=== PATIENT | female | born 1945 | race Hispanic/Latino ===

== ENCOUNTER 2017-01-15 14:45 | Inpatient (IN) | payer MEDICARE ==
[2017-01-15 15:38] VITALS: BMI 30.5
[2017-01-15] MEDS ORDERED: Alum-Mag Hydrox-Simethicone Susp (30 mL) PO PRN (16:15)
[2017-01-15] MEDS ORDERED: Bismuth Subsalicylate 262 mg/15 ml Sus (240 ml) PO PRN (16:16)
--- NOTE | 2017-01-15 17:13 | CP.PCM.HP ---
History of Present Illness - History of Present Illness History of Present Illness: 71 yo female with history of HTN admitted to [facility] because of worsening depression Present on Admission - Present on Admission Any Indicators Present on Admission: No History of DVT/PE: No History of Uncontrolled Diabetes: No Urinary Catheter: No Decubitus Ulcer Present: No Review of Systems - Review of Systems All systems: reviewed and no additional remarkable complaints except (aside from thsoe mentioned above, 12 point system review were negative by me) Meds Allergies/Adverse Reactions: Allergies Allergy/AdvReac Type Severity Reaction Status Date / Time No Known Allergies Allergy Verified 01/15/17 15:38 Physical Exam - Constitutional Appears: No Acute Distress - Head Exam Head Exam: ATRAUMATIC - Eye Exam Eye Exam: absent: Scleral icterus - ENT Exam ENT Exam: Mucous Membranes Moist - Neck Exam Neck exam: Negative for: Meningismus - Respiratory Exam Respiratory Exam: absent: Rhonchi, Wheezes, Respiratory Distress - Cardiovascular Exam Cardiovascular Exam: REGULAR RHYTHM, +S1, +S2 - GI/Abdominal Exam GI & Abdominal Exam: Soft. absent: Tenderness - Rectal Exam Rectal Exam: Deferred - Neurological Exam Neurological exam: Alert, Oriented x3 - Psychiatric Exam Psychiatric exam: Normal Affect - Skin Skin Exam: Dry, Intact Results - Vital Signs Recent Vital Signs: Last Vital Signs Temp Pulse Resp 18 01/15/17 15:29 BP Pulse Ox Assessment & Plan (1) Depression Status: Acute Comment: psyche is managing (2) UTI (urinary tract infection) Status: Acute Comment: repeat urinalysis and urine culture (3) HTN (hypertension) with goal to be determined Status: Acute Comment: BP stable. continue Metoprolol
[2017-01-15 19:54] LABS: RBC URINE 3 /hpf (0-3); URINE BACTERIA RARE (<OCC); URINE BILIRUBIN NEGATIVE (NEGATIVE); URINE BLOOD NEGATIVE (NEGATIVE); URINE COLOR YELLOW (YELLOW); URINE GLUCOSE (UA) NEG (Normal); URINE KETONE NEGATIVE (NEGATIVE); URINE LEUKOCYTE ESTERASE SMALL Leu/uL (Negative); URINE PROTEIN NEGATIVE (NEGATIVE); URINE UROBILINOGEN 0.2-1.0 mg/dL (0.2-1.0); WBC URINE 40 /hpf (0-5)
[2017-01-16 07:38] LABS: BASO % 0.6 % (0.0-2.0); EOS # 0.5 K/uL (0.0-0.7); EOS % 7.4 % (0.0-4.0); HEMATOCRIT 39.8 % (34.0-47.0); LYMPH # 1.4 K/uL (1.0-4.3); LYMPH % 22.3 % (20.0-40.0); MEAN CELL VOLUME 96.2 fl (81.0-99.0); MEAN CORPUSCULAR HGB CONC 33.2 g/dL (33.0-37.0); MEAN PLATELET VOLUME 6.7 fl (7.2-11.7); MONO # 0.5 K/uL (0.0-0.8); MONO % 7.7 % (0.0-10.0); RED CELL DISTRIBUTION WIDTH 14.4 % (11.5-14.5); WHITE BLOOD COUNT 6.5 K/uL (4.8-10.8)
[2017-01-16 07:52] LABS: IRON 68 ug/dL (37-170)
[2017-01-16 07:52] LABS: CHOLESTEROL 187 mg/dL (0-199)
[2017-01-16 08:00] LABS: ALB/GLOB RATIO 1.3 (1.0-2.1); ALKALINE PHOSPHATASE 72 U/L (38-126); ALT/SGPT 34 U/L (9-52); AST/SGOT 34 U/L (14-36); BILIRUBIN,TOTAL 0.4 mg/dl (0.2-1.3); BLOOD UREA NITROGEN 13 mg/dl (7-17); CALCIUM 8.8 mg/dL (8.4-10.2); CARBON DIOXIDE 27 mmol/L (22-30); CHLORIDE 107 mmol/L (98-107); GFR AFRICAN-AMERICAN > 60; GLUCOSE,RANDOM 97 mg/dL (65-105); POTASSIUM 3.7 MMOL/L (3.6-5.0); SODIUM 146 mmol/l (132-148); TOTAL PROTEIN 6.1 G/DL (6.3-8.2)
--- NOTE | 2017-01-16 08:20 | PCM.PSYCH ---
Initial Psychiatric Evaluation - Initial Psychiatric Evaluation Type of Admission: Voluntary Legal Status: Capacity Chief Complaint (in patient's own words): "I'm depressed." Patient's Reaction to Hospitalization: HPI: 71 yo female with h/o multiple psychiatric admission for depression, transferred from [facility] for admission after she attempted suicide by overdose on Xanax, Alcohol and Gabapentin on 01/12/17. Initial report from [facility] is that patient reported that she overdosed because her is annoying and when she woke up she stated "damn I can't believe I'm still alive." Patient is now stating that her overdose was impulsive and related to her alcohol use. She denies ideation to harm herself or others. She states that she wants to live because she wants to visit her grandchildren on February 05 in [place] and is exited about her first class flight. She denies any self-injurious ideation/plan/intent. No psychotic symptoms. She reports that she has been on many antidepressants in the past which have not been helpful, but believes that Abilify is helpful and is agreeable to increasing the medication. R/B/se reviewed. She reports that her depression is related to her not having friends where she lives or enough activities to engage in. PPHx: Multiple psychiatric admissions, most recent at [facility] 12/09/16-12/16-, -03/18/16, 05/26/15-06/05/15, 10/03/13-10/06/13, 11/06-12/07. History of tx with Wellbutrin XL, Effexor XR and Neurontin. H/o suicide attempt 5-6 year ago, she overdosed on Xanax and alcohol. PMHx: HTN, lap band surgery 6 years ago, diverticulosis, hx gall stones SHx: Lives with , +2 adult children and +4 grandchildren. +Alcohol abuse , been drinking since age 22, longest period of sobriety- 1 year, but she reports that she drinks "sporadically" but when she does it is in large quantities, like an entire bottle of wine or [place]. Denies history of abuse. All: NKDA FHx: Denies family history of mental illness Current Medications: Active Medications Generic Name Dose Route Start Last Admin Trade Name Freq PRN Reason Stop Dose Admin Acetaminophen 650 mg 01/15/17 16:14 01/15/17 19:29 Tylenol 325mg Tab PO 650 mg Q4 PRN Administration Pain, moderate (4-7) Al Hydrox/Mg Hydrox/Simethicone 30 ml 01/15/17 16:15 Maalox Plus 30 Ml PO Q4 PRN Indigestion / Heartburn Amlodipine Besylate 5 mg 01/16/17 09:00 Norvasc PO DAILY PEDRO Aripiprazole 5 mg 01/16/17 22:00 Abilify PO HS PEDRO Bismuth Subsalicylate 524 mg 01/15/17 16:16 Pepto-Bismol PO Q1 PRN Diarrhea Docusate Sodium 100 mg 01/16/17 09:00 Colace PO DAILY PEDRO Lorazepam 0.5 mg 01/15/17 16:04 01/15/17 18:14 Ativan PO 0.5 mg TID PRN Administration Agitation Metoprolol Succinate 50 mg 01/16/17 09:00 Toprol Xl PO DAILY PEDRO Trazodone HCl 50 mg 01/15/17 22:00 01/15/17 21:04 Desyrel PO 50 mg HS PEDRO Administration Trimethoprim/Sulfamethoxazole 800 tab 01/16/17 09:00 Bactrim Ds Tab PO BID PEDRO Past Psychiatric History - Past Psychiatric History Previous Treatment History: Inpatient Pertinent Medical Hx (Current Medical&Sleep Prob, Allergies): Allergies Allergy/AdvReac Type Severity Reaction Status Date / Time No Known Allergies Allergy Verified 01/15/17 15:38 ALPRAZolam [Xanax] 1 mg PO BID PRN 01/15/17 ARIPiprazole [Abilify] 2 mg PO 01/15/17 Docusate [Colace] 100 mg PO DAILY 01/15/17 Enoxaparin [Lovenox] 40 mg SQ DAILY 01/15/17 Metoprolol Tartrate [Lopressor] 50 mg PO DAILY 01/15/17 Sulfamethoxazole/Trimethoprim [Bactrim DS 800 mg-160 mg] 800 tab PO BID amLODIPine [Norvasc] 5 mg PO DAILY 01/15/17 traZODone [Desyrel] 50 mg 01/15/17 Review of Systems - Review of Systems All systems: reviewed and no additional remarkable complaints except - Psychiatric Psychiatric: Depression, Mood Swings Mental Status Examination - Personal Presentation Personal Presentation: Looks stated age - Affect Affect: Broad - Motor Activity Motor Activity: Calm - Reliability in Providing Information Reliability in Providing Information: Good - Speech Speech: Organized - Mood Mood: Depressed - Formal Thought Process Formal Thought Process: No Impairment - Obsessions/Compulsions Obsessions: No Compulsions: No - Cognitive Functions Orientation: Person, Place, Situation, Time Sensorium: Alert Attention/Concentration: Attentive Estimate of Intelligence: Average Judgement: Intact, as evidence by: Good judgement, Intact, as evidence by: Insight regarding need for hospitalization Memory: Recent intact, as evidence by: Ability to recall events of the day, Remote intact, as evidenced by: Abilit to recall sig. life events, Remote intact , as evidenced by: Ability to recall historical events - Risk Risk: Suicidal - Strength & Assets Inventory Strength & Assets Inventory: Life experience, Cooperative DSM 5 DX - DSM 5 DSM 5 Diagnosis: Major Depressive Disorder, Alcohol use disorder - Recommended/Plan of Treatment Treatment Recommendations and Plan of Treatment: 71 yo female with Major Depressive Disorder, recurrent and alcohol use disorder , presents s/p overdose on Xanax, Gabapentin and alcohol as an impulsive suicide attempt, 4 days ago. No signs of benzodiazepine or alcohol withdrawal. Patient currently denying suicidal ideation/plan/intent and is able to contract for safety. Plan: -Increase Abilify to 5 mg PO HS -Continue Trazodone 50 mg PO HS PRN insomnia -1:1 no longer indicated as the patient can contract for safety -Routine medicine consult -Monitor for signs of withdrawal (no symptoms present) -Individual, group and milieux tx Projected ELOS: 3-5 days Discharge Plan and Discharge Criteria: Discharge to home when psychiatrically stable - Smoking Cessation Smoking Cessation Initiated: No Reason for not providing: Not indicated
[2017-01-16 08:22] LABS: T4 8.05 ug/dl (5.5-11.0)
[2017-01-16 08:34] LABS: THYROID STIMULATING HORMONE 2.31 mIU/ML (0.46-4.68)
[2017-01-16] MEDS ORDERED: Tmp-Smz 800 mg-160 mg DS Tab PO SCH (09:00)
[2017-01-16] MEDS: Metoprolol Succinate 50 mg XL Tab PO SCH (09:21)
[2017-01-16] MEDS: Tmp-Smz 800 mg-160 mg DS Tab PO SCH (16:26)
[2017-01-17] MEDS: Tmp-Smz 800 mg-160 mg DS Tab PO SCH ×2 (08:56→17:21)
[2017-01-17] MEDS: Metoprolol Succinate 50 mg XL Tab PO SCH (08:57)
--- NOTE | 2017-01-17 10:49 | PCM.PYCHPN ---
Psychiatric Progress Note - Psychiatric Progress Note Patient seen today, length of contact: chart reviewed, case discussed with team Patient Chief Complaint: pt seen laying in bed, reports that last night took abilify 5mg po at bedtime for first (previously was two mg) reports that had nightmarish type dream, woke up feeling nervous, denies recall of detail (denies having prior to increase), medication was explained to pt inlcuding possible relationship to increased dose and or deeper sleep. pt was is agreeable to continue rx. reports came to hospital after becoming depressed over past several months after relocating to [facility] , prior had to move around frequently 2nd to having to relocate 2nd to work ( now retired). prior pt reports being able to make friends , play cards, etc. current domicile precluded prior activities 2nd availability. admits to increased sleep, staying at home, reportedly supportive but make plans for his day. pt admits at times to becoming depressed when is unable to be around people, not having structure, describes self as usually be open etc. pt reflects and notes"you when I in a place like this when I am around people I don't feel so isolated". when isolated reports becoming depressed, feeling like there are very little options at the age of 71. Reports thoughts attempts were related to frustration. denies having planned. denies ill -will towards . reports has spoken to some during hospitalization about the availability of a restoration and a senior center near where she lives-admits this as being a form of leverage and hope. also expresses desire to go visit son who lives in [place]. reflects possible ability of living in [place] admits being for over 47 years, feels fairly supported, denies concern for safety "we have our ups and downs but we are there for each other". staff report pt has been adherent with medications, noted to actively seek out unit based activities. pt reports currently has cleaning service related to home cleaning "my has always known that i dont like to clean"-this is not a change from base line function. does admit to some changes in selfcare related to bathing". reports has two little "yorkies" that are like her babies" noted to smile. ur Problems Identified/Issues Discussed: anhedonia, changes in self care, suicidal ideations, isolation, reported periods of depression when perception of isolation is present. Medical Problems: per chart Diagnostic Results: per psychiatry per medicine per nursing per licensed clinical social worker per recreational therapy DSM 5 Symptoms Update: anhedonia, mood changes, ?personality traits borderline" Medication Change: No Medical Record Reviewed: Yes Mental Status Examination - Cognitive Function Orientation: Person, Place, Situation, Time Memory: Intact Attention: WNL Concentration: WNL Association: WNL Fund of Knowledge: WN Decription of patient's judgement and insights: somewhat impaired - Mood Mood: Depressed - Affect Affect: Broad - Speech Speech: Appropriate - Formal Thought Process Formal Thought Process: No Impairment - Homicidal Ideation Homicidal Ideation: Yes Goal/Treatment Plan - Goal/Treatment Plan Need for Continued Stay: Remain at risks for inpatient hospitalization, Severe depression anxiety, Discharge may exacerbated symptoms Progress Toward Problem(s) and Goals/Treatment Plan: inpt milieu adjust meds per clinical status-pt was started on abilify 5mg po hs yesterday- will have team continue to assess for possible side effects including nightmares observation per protocol and per clinical status assess mood including possible elation offer 1-1 opportunities for discuss reflection for possible other coping mechanisms then self harm (cognitive behavioral therapy), focus on moment "be in the moment -Dialectical Behavior therapy : use rubber band snapping on wrist , dipping hands in cold water SHORT PERIODS) discharge planning in progress Estimated Date of D/C: 01/20/17 - Smoking Cessation Smoking Cessation Initiated: No Reason for not providing: deferred
[2017-01-17 22:50] LABS: FOLATE 12.4 ng/mL
[2017-01-18] MEDS: Tmp-Smz 800 mg-160 mg DS Tab PO SCH ×2 (08:28→17:08)
[2017-01-18] MEDS: Metoprolol Succinate 50 mg XL Tab PO SCH (08:30)
--- NOTE | 2017-01-19 02:59 | PCM.PYCHPN ---
Psychiatric Progress Note - Psychiatric Progress Note Patient seen today, length of contact: chart reviewed, case discussed with team Patient Chief Complaint: reports feeling a little better, a little bored 2nd it being thursday, reports sleeping intermittently, partially relieved trazodone 50mg. reports although did not visit (2nd distance)-has been in communication with him via phone, denies this being change from baseline (past admissions did not always travel). expresses looking forward to continuing care upon discharge, wishing to continue care closer to home. staff report pt has been adherent with medication and denies side effects today. Problems Identified/Issues Discussed: anhedonia improving, changes in self care improving, suicidal ideations resolved , isolation is less, reported periods of depression when perception of isolation is present-able to reflect on mood self participation in treatment and structure (attempting to find activities to structure day) Medical Problems: per chart Diagnostic Results: per psychiatry per medicine per nursing per psychiatric social worker supervisor per recreational therapy DSM 5 Symptoms Update: mood symptoms improving continues to have issues with sleep (is chronic per hx) Medication Change: No Medical Record Reviewed: Yes Mental Status Examination - Cognitive Function Orientation: Person, Place, Situation, Time Memory: Intact Attention: WNL Concentration: WNL Association: [facility] Fund of Knowledge: [facility] Decription of patient's judgement and insights: somewhat impaired - Mood Mood: Other (euthymic) - Affect Affect: Broad - Speech Speech: Appropriate - Formal Thought Process Formal Thought Process: No Impairment - Homicidal Ideation Homicidal Ideation: Yes Goal/Treatment Plan - Goal/Treatment Plan Need for Continued Stay: Remain at risks for inpatient hospitalization, Severe depression anxiety, Discharge may exacerbated symptoms Progress Toward Problem(s) and Goals/Treatment Plan: inpt milieu adjust meds per clinical status observation per protocol and per clinical status assess mood including possible elation offer 1-1 opportunities for discuss reflection for possible other coping mechanisms then self harm (cognitive behavioral therapy), focus on moment "be in the moment -Dialectical Behavior therapy : use rubber band snapping on wrist , dipping hands in cold water SHORT PERIODS) discharge planning in progress Estimated Date of D/C: 01/20/17 - Smoking Cessation Smoking Cessation Initiated: No Reason for not providing: defers
[2017-01-19] MEDS: Tmp-Smz 800 mg-160 mg DS Tab PO SCH ×2 (08:38→16:26)
[2017-01-19] MEDS: Metoprolol Succinate 50 mg XL Tab PO SCH (08:39)
--- NOTE | 2017-01-19 09:33 | PCM.PYCHPN ---
Psychiatric Progress Note - Psychiatric Progress Note Patient seen today, length of contact: Chart reviewed, case discussed with team , patient evaluated, 35 min Patient Chief Complaint: "I'm feeling better" Problems Identified/Issues Discussed: Patient reports improvement in mood. She denies desire to harm herself. She denies adverse effects to Abilify. She is goal-oriented and discusses her plans to get her hair/nails/make-up done and spend time with her family. She is able to contract for safety and feels safe for discharge tomorrow. We discussed the importance of ETOH cessation and how it can worsen mood and/or impulsive behaviors. Supportive and motivational therapy provided. No AH/VH/SI /HI. No acute medical complaints. Medication Change: No Medical Record Reviewed: Yes Mental Status Examination - Cognitive Function Orientation: Person, Place, Situation, Time Memory: Intact Attention: WNL Concentration: WNL Association: WNL Fund of Knowledge: [facility] Decription of patient's judgement and insights: Good I/J - Mood Mood: Other (euthymic) - Affect Affect: Broad - Speech Speech: Appropriate - Formal Thought Process Formal Thought Process: No Impairment Psychotic Thoughts and Behaviors: No AH/VH - Suicidal Ideation Suicidal Ideation: No - Homicidal Ideation Homicidal Ideation: No Goal/Treatment Plan - Goal/Treatment Plan Need for Continued Stay: Remain at risks for inpatient hospitalization Progress Toward Problem(s) and Goals/Treatment Plan: 71 yo female with Major Depressive Disorder, recurrent and alcohol use disorder , presented s/p overdose on Xanax, Gabapentin and alcohol as an impulsive suicide attempt one week ago. No signs of benzodiazepine or alcohol withdrawal. Patient currently denying suicidal ideation/plan/intent and is able to contract for safety. Plan: -Continue Abilify 5 mg PO HS -Continue Trazodone 50 mg PO HS -Routine medicine consult appreciated -Individual, group and milieux tx -Discharge to home tomorrow with outpatient follow-up Estimated Date of D/C: 01/20/17
[2017-01-20 05:54] VITALS: BP 142/60; PULSE 60; RESP 18; TEMP 97.2
[2017-01-20] MEDS: Metoprolol Succinate 50 mg XL Tab PO SCH (08:25)
[2017-01-20] MEDS: Tmp-Smz 800 mg-160 mg DS Tab PO SCH (08:26)
--- NOTE | 2017-01-20 08:44 | PCM.PYCHDC ---
Mental Status Examination - Mental Status Examination Orientation: Person, Place, Situation, Time Memory: Intact Mood: Neutral Affect: Broad Speech: Appropriate Attention: WNL Concentration: WNL Association: WNL Fund of Knowledge: WNL Formal Thought Process: No Impairment Description of patient's judgement and insight: Good I/J Psychotic Thoughts and Behaviors: No AH/VH Suicidal Ideation: No Current Homicidal Ideation?: No Discharge Summary - Discharge Note Reason for Hospitalization: HPI: 71 yo female with h/o multiple psychiatric admission for depression, transferred from [facility] for admission after she attempted suicide by overdose on Xanax, Alcohol and Gabapentin on 01/12/17. Initial report from [facility] [place] that patient reported that she overdosed because her is annoying and when she woke up she stated "damn I can't believe I'm still alive." Patient is now stating that her overdose was impulsive and related to her alcohol use. She denies ideation to harm herself or others. She states that she wants to live because she wants to visit her grandchildren on February 05 in [place] and is exited about her first class flight. She denies any self-injurious ideation/plan/intent. No psychotic symptoms. She reports that she has been on many antidepressants in the past which have not been helpful, but believes that Abilify is helpful and is agreeable to increasing the medication. R/B/se reviewed. She reports that her depression is related to her not having friends where she lives or enough activities to engage in. PPHx: Multiple psychiatric admissions, most recent at [facility] 12/09/16-12/16-, -03/18/16, 05/26/15-06/05/15, 10/03/13-10/06/13, 11/06-12/07. History of tx with Wellbutrin XL, Effexor XR and Neurontin. H/o suicide attempt 5-6 year ago, she overdosed on Xanax and alcohol. PMHx: HTN, lap band surgery 6 years ago, diverticulosis, hx gall stones SHx: Lives with , +2 adult children and +4 grandchildren. +Alcohol abuse , been drinking since age 22, longest period of sobriety- 1 year, but she reports that she drinks "sporadically" but when she does it is in large quantities, like an entire bottle of wine or [place]. Denies history of abuse. All: NKDA FHx: Denies family history of mental illness Consultations:: List each consultation separately and include: 1. Reason for request. 2. Findings. 3. Follow-up Consultations: Routine medicine consult- no acute changes in medical medications Summary of Hospital Course include:: 1. Description of specific treatment plan utilized for patients during their course of treatmen. 2. Summarize the time- course for resolution of acute symptoms and/or regressed behaviors. 3. Describe issues identified and worked on during hospitalization. 4. Describe medication utilized. 5. Describe medical problems identified and treated. 6. Reassessment of suicide risk Summary of Hospital Course: Patient admitted to the geriatric psychiatry unit. Supportive and motivational therapy provided. She was titrated up to Abilify 5 mg. She no longer reports suicidal ideation/plan/intent and is able to contract for safety. She has her family and grandchildren to live for. She denies current feelings of depression /anxiety/spike and was counseled on how ETOH abuse can worsen mood and lead to impulsive behaviors. - Final Diagnosis (DSM 5) Condition upon Discharge: STABLE DSM 5: Major Depressive Disorder, recurrent; Alcohol Use Disorder Disposition: HOME/ ROUTINE Follow-up Treatment Plan: 71 yo female with Major Depressive Disorder, recurrent and alcohol use disorder , presented s/p overdose on Xanax, Gabapentin and alcohol as an impulsive suicide attempt one week ago. No signs of benzodiazepine or alcohol withdrawal. Patient currently denying suicidal ideation/plan/intent and is able to contract for safety. She has improved mood and is now psychiatrically stable for discharge. Plan: -Continue Abilify 5 mg PO HS -Continue Trazodone 50 mg PO HS -Continue Bactrim x5 days for UTI -Discharge to home tomorrow with outpatient follow-up Patient evaluated, case discussed with team, chart reviewed, prescriptions prepared, 35 min Prescriptions/Medication Reconciliation: ARIPiprazole [Abilify] 5 mg PO HS #30 tab Sulfamethoxazole/Trimethoprim [Bactrim DS Tab] 800 tab PO BID #10 tab traZODone [Desyrel] 50 mg PO HS #30 tab - Smoking Cessation Smoking Cessation Medication prescribed: No Reason for not providing: Not indicated - Antipsychotic Medications Pt discharged on 2 or more routine antipsychotic medications: No
== END 2017-01-20 13:15 | disposition home or self-care (01) | DRG 885 ==
LOC: H.ER 14:45 → H.STEP 15:15
PROVIDERS: ADMIT Psychiatry & Neurology Psychiatry; ATTEND Psychiatry & Neurology Psychiatry
PROC: GZHZZZZ Group Psychotherapy (ICD-10-PCS; principal; 2017-01-15)
PROC: GZ56ZZZ Individual Psychotherapy, Supportive (ICD-10-PCS; 2017-01-15)
DX: F33.9 Major depressive disorder, recurrent, unspecified (principal); N39.0 Urinary tract infection, site not specified; I10 Essential (primary) hypertension; Z72.89 Other problems related to lifestyle